=== PATIENT | female | born 1995 | race African-American/Black ===

== ENCOUNTER 2017-10-21 18:18 | Emergency (ER) | payer OTHER ==
[2017-10-21 18:33] VITALS: BMI 20.9
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
[2017-10-21] MEDS ORDERED: DIPHTH,PERTUSS(ACELL),TET 0.5 ML DISP.SYRIN IM ONE (19:09)
[2017-10-21 19:32] LABS: HCG,QUALITATIVE URINE NEGATIVE
[2017-10-21 19:52] LABS: URINE APPEARANCE SLCLOUDY; URINE BILIRUBIN NEGATIVE (<2.0 mg/dL); URINE COLOR YELLOW; URINE GLUCOSE (UA) NEGATIVE (NEGATIVE); URINE KETONE TRACE (NEGATIVE); URINE LEUK ESTERASE NEGATIVE (NEGATIVE); URINE NITRITE NEGATIVE (NEGATIVE); URINE UROBILINOGEN 4.0 E.U/dl mg/dL (0.2-1.0)
[2017-10-21 19:54] LABS: URINE PROTEIN 1+ (NEGATIVE)
[2017-10-21 19:55] LABS: EPI CELLS MODERATE /HPF (FEW); URINE BACTERIA RARE /hpf (NONE SEEN); URINE MUCUS RARE
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
[2017-10-21 22:21] VITALS: BP 124/72; PULSE 82; TEMP 98.2
== END 2017-10-21 22:05 | disposition home or self-care (01) ==
LOC: JER 18:18
PROC: 0HQ0XZZ Repair Scalp Skin, External Approach (ICD-10-PCS; principal; 2017-10-21)
PROC: 3E0234Z Introduction of Serum, Toxoid and Vaccine into Muscle, Percutaneous Approach (ICD-10-PCS; 2017-10-21)
DX: S01.01XA Laceration without foreign body of scalp, initial encounter (principal); S40.022A Contusion of left upper arm, initial encounter; Y00.XXXA Assault by blunt object, initial encounter; Y93.89 Activity, other specified; Y92.89 Other specified places as the place of occurrence of the external cause; Y99.8 Other external cause status; Y07.03 Male partner, perpetrator of maltreatment and neglect
CPT/HCPCS: 12001; 70450-TC; 72125-TC; 73060-TC-LT-FY; 81003; 81015; 84703; 90471; 90715; 99284-25